=== PATIENT | female | born 1955 | race Caucasian/White ===

== ENCOUNTER 2025-03-23 10:50 | Outpatient (CLI) | payer MEDICARE, MEDICAID ==
--- NOTE | 2025-03-23 13:23 | RADIOLOGY REPORT ---
EXAM: CT CT CHEST LOW DOSE INDICATION: PERSONAL HISTORY OF NICOTINE DEPENDENCE TECHNIQUE: Low-dose noncontrast CT of the lungs have been obtained. All CT scans at this facility use dose modulation, iterative reconstruction, and/or weight based dosing when appropriate to reduce radiation dose to as low as reasonably achievable. COMPARISON: None FINDINGS: LOWER NECK: Unremarkable LYMPH NODES/MEDIASTINUM: No abnormal lymph nodes by CT size criteria CARDIOVASCULAR: Normal cardiac size. No pericardial effusion. No aneurysmal dilatation of the great vessels. Coronary artery calcifications. UPPER ABDOMEN: Limited evaluation secondary to photon starvation. Unremarkable. MUSCULOSKELETAL: Multilevel degenerative change of the visualized spine. No acute fracture or aggressive focal osseous lesion. CHEST WALL: Unremarkable. LUNG/PLEURAL SPACE: 5 mm area of solid nodule with marginal ground-glass with slight spiculated margins of the periphery of the right upper lobe (axial 44). Oval-shaped pulmonary nodule measuring 3-4 mm in the right middle lobe. Scarring of the periphery of the lung bases. Areas of inconspicuous ground-glass without solid component of the periphery of bilateral upper lobes. No pleural effusion or pneumothorax. IMPRESSION: 1. No CT evidence of an acute intrathoracic process. 2. Pulmonary nodules measuring less than 6 mm at baseline. LUNG-RADS: 2- Benign Appearance or Behavior RECOMMENDATION: Annual low dose lung screening CT is recommended for 15 years after smoking cessation or until age 77. CITATION: Lung cancer screening categorization and recommendations per [employer] Lung-RADS Version 1.0 (http://www.acr.org/Quality- Safety/Resources/LungRADS).
== END 2025-03-23 23:59 | disposition home or self-care (01) ==
LOC: RAD 10:50
PROVIDERS: ATTEND Nurse Practitioner Occupational Health
DX: Z12.2 Encounter for screening for malignant neoplasm of respiratory organs (principal); R91.8 Other nonspecific abnormal finding of lung field; J98.4 Other disorders of lung; I25.10 Atherosclerotic heart disease of native coronary artery without angina pectoris; M47.814 Spondylosis without myelopathy or radiculopathy, thoracic region; Z87.891 Personal history of nicotine dependence
CPT/HCPCS: 71271